=== PATIENT | male | born 2000 | race Caucasian/White ===

== ENCOUNTER 2021-01-01 09:45 | Emergency (ER) | payer OTHER ==
[2021-01-01 09:56] VITALS: BP 148/72
--- NOTE | 2021-01-01 10:40 | XRAY Report ---
PROCEDURE: Hand 3 View LT INDICATIONS: Trauma, injury, pain TECHNIQUE: 3 views of the hand(s) acquired. COMPARISON: None FINDINGS: Bones: No fractures or dislocations. No suspicious bony lesions. Soft tissues: No suspicious soft tissue calcifications. IMPRESSION: Normal exam. Reviewed by: Mele Pineda MD on 01/01/2021 10:38 AM PDT Approved by: Mele Pineda MD on 01/01/2021 10:38 AM PDT Station ID: [id number]
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
== END 2021-01-01 11:18 | disposition home or self-care (01) ==
LOC: ED 09:45
DX: S60.222A Contusion of left hand, initial encounter (principal); W20.8XXA Other cause of strike by thrown, projected or falling object, initial encounter; Y93.89 Activity, other specified; F17.200 Nicotine dependence, unspecified, uncomplicated
CPT/HCPCS: 99282; 99283